=== PATIENT | male | born 1995 | race Hispanic/Latino ===

== ENCOUNTER 2025-05-26 22:45 | Emergency (ER) | payer SELFPAY ==
[2025-05-26 22:50] VITALS: BP 150/89
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
[2025-05-27] MEDS: MOTRIN 600 MG PO (01:13)
== END 2025-05-27 03:22 | disposition home or self-care (01) ==
LOC: EMR 22:45
PROVIDERS: EMERGENCY PHYSICIAN Emergency Medicine
DX: S70.12XA Contusion of left thigh, initial encounter (principal); S20.219A Contusion of unspecified front wall of thorax, initial encounter; V89.2XXA Person injured in unspecified motor-vehicle accident, traffic, initial encounter
CPT/HCPCS: 99283; 71046; 73552